=== PATIENT | male | born 1995 | race Caucasian/White ===

== ENCOUNTER 2020-12-14 06:49 | Emergency (ER) | payer OTHER ==
[2020-12-14 07:48] LABS: BASOPHIL 0.3 % (0-2); EOSINOPHIL 0.1 % (0-5); HCT 49.7 % (42.0-52.0); HGB 16.4 g/dl (13.2-18.0); MCH 30.5 pg (25.0-31.0); MCV 92.6 fL (78.0-100.0); MPV 9.6 fL (6.0-9.5); NEUTROPHIL 74.2 % (41-80); NRBC 0; PLT 311 K/uL (150-400); RBC 5.37 M/uL (4.70-6.00); RDW 12.8 % (11.5-14.0); WBC 17.4 K/uL (4.0-10.5)
[2020-12-14 08:13] LABS: ALBUMIN 4.1 g/dL (3.4-5.0); ALKALINE PHOSHATASE 57 U/L (46-116); ALT 123 U/L (16-63); AST 96 U/L (15-37); BILIRUBIN - TOTAL 0.2 mg/dL (0.2-1.0); BUN 16 mg/dL (7-18); BUN/CREAT RATIO (CALC) 19.5 RATIO; CHLORIDE 106 mmol/L (98-107); CO2 (BICARBONATE) 28 mmol/L (21-32); CREATININE 0.82 mg/dL (0.67-1.17); GLOBULIN (CALCULATION) 3.4 g/dL; GLUCOSE 119 mg/dL (74-106); LIPASE 215 U/L (73-393); MAGNESIUM 2.2 mg/dL (1.8-2.4); POTASSIUM 3.6 mmol/L (3.5-5.1); TOTAL PROTEIN 7.5 g/dL (6.4-8.2)
[2020-12-14 08:14] LABS: ACETAMINOPHEN (TYLENOL) < 2.0 ug/mL (10.0-30.0)
[2020-12-14 15:58] LABS: BILIRUBIN NEGATIVE (NEGATIVE); BLOOD NEGATIVE Ery/uL (NEGATIVE); CLARITY CLEAR (CLEAR); COLOR YELLOW (YELLOW); GLUCOSE (U) NORMAL (NORMAL); LEUKOCYTES NEGATIVE Leu/uL (NEGATIVE); NITRITE NEGATIVE (NEGATIVE); PROTEIN NEGATIVE (NEGATIVE); UROBILINOGEN 0.2 mg/dL (0.2-1.0)
[2020-12-14 16:10] LABS: AMPHETAMINES NEGATIVE (NEGATIVE); BARBITURATES NEGATIVE (NEGATIVE); ECSTASY (MDMA) NEGATIVE (NEGATIVE); MARIJUANA (THC) NEGATIVE (NEGATIVE); METHADONE NEGATIVE (NEGATIVE); OPIATES NEGATIVE (NEGATIVE); OXYCODONE NEGATIVE (NEGATIVE)
== END 2020-12-14 20:43 ==
LOC: FER 06:49
PROVIDERS: Emergency Medicine
DX: F31.9 Bipolar disorder, unspecified (principal); F10.129 Alcohol abuse with intoxication, unspecified; F17.210 Nicotine dependence, cigarettes, uncomplicated; Z20.822 Contact with and (suspected) exposure to COVID-19
CPT/HCPCS: 36415; 80053; 80305; 81003; 83690; 83735; 85025; G0480; J3411; J3475; J7030; U0002

== ENCOUNTER 2021-03-28 21:22 | Emergency (ER) | payer OTHER ==
[2021-03-28 21:59] LABS: BASOPHIL 0.5 % (0-2); EOSINOPHIL 1.7 % (0-5); HCT 43.8 % (42.0-52.0); HGB 15.3 g/dl (13.2-18.0); LYMPHOCYTE 37.6 % (15-48); MCH 30.8 pg (25.0-31.0); MCHC 34.9 g/dL (32.0-36.0); MCV 88.3 fL (78.0-100.0); MONOCYTE 9.9 % (0-12); MPV 9.7 fL (6.0-9.5); NEUTROPHIL 49.4 % (41-80); NRBC 0; PLT 307 K/uL (150-400); RBC 4.96 M/uL (4.70-6.00); RDW 11.9 % (11.5-14.0); WBC 11.3 K/uL (4.0-10.5)
[2021-03-28 22:03] LABS: BILIRUBIN NEGATIVE (NEGATIVE); BLOOD NEGATIVE Ery/uL (NEGATIVE); CLARITY CLEAR (CLEAR); COLOR YELLOW (YELLOW); GLUCOSE (U) NORMAL (NORMAL); LEUKOCYTES NEGATIVE Leu/uL (NEGATIVE); NITRITE NEGATIVE (NEGATIVE); PROTEIN NEGATIVE (NEGATIVE); SPECIFIC GRAVITY >=1.030 (1.001-1.030)
[2021-03-28 22:09] LABS: ALBUMIN 3.7 g/dL (3.4-5.0); BILIRUBIN - TOTAL 0.3 mg/dL (0.2-1.0); BUN/CREAT RATIO (CALC) 18.4 RATIO; CREATININE 0.98 mg/dL (0.67-1.17); POTASSIUM 3.7 mmol/L (3.5-5.1); TOTAL PROTEIN 6.7 g/dL (6.4-8.2)
[2021-03-28] MEDS ORDERED: PEPCID AC20 MG PO (23:53)
== END 2021-03-29 00:09 | disposition home or self-care (01) ==
LOC: FER 21:22
PROVIDERS: Emergency Medicine
DX: B34.9 Viral infection, unspecified (principal); K29.70 Gastritis, unspecified, without bleeding; F17.200 Nicotine dependence, unspecified, uncomplicated
CPT/HCPCS: 36415; 71045; 80053; 81003; 82150; 83690; 85025

== ENCOUNTER 2021-06-29 02:30 | Emergency (ER) | payer OTHER ==
[~2021-06-29 02:30] MED LIST: PEPCID AC20 MG PO
[2021-06-29 03:50] LABS: BASOPHIL 0.4 % (0-2); EOSINOPHIL 0.2 % (0-5); HCT 46.9 % (42.0-52.0); HGB 15.9 g/dl (13.2-18.0); LYMPHOCYTE 22.7 % (15-48); MCH 30.4 pg (25.0-31.0); MCHC 33.9 g/dL (32.0-36.0); MCV 89.7 fL (78.0-100.0); MPV 9.8 fL (6.0-9.5); NRBC 0; PLT 327 K/uL (150-400); RBC 5.23 M/uL (4.70-6.00)
[2021-06-29 03:51] LABS: WBC 19.3 K/uL (4.0-10.5)
[2021-06-29 04:09] LABS: ALBUMIN 4.1 g/dL (3.4-5.0); ALKALINE PHOSHATASE 70 U/L (46-116); ALT 35 U/L (16-63); AST 23 U/L (15-37); BILIRUBIN - TOTAL 0.4 mg/dL (0.2-1.0); BUN 17 mg/dL (7-18); BUN/CREAT RATIO (CALC) 17.9 RATIO; CHLORIDE 104 mmol/L (98-107); CO2 (BICARBONATE) 31 mmol/L (21-32); CREATININE 0.95 mg/dL (0.67-1.17); GLOBULIN (CALCULATION) 3.2 g/dL; GLUCOSE 100 mg/dL (74-106); POTASSIUM 4.1 mmol/L (3.5-5.1); TOTAL PROTEIN 7.3 g/dL (6.4-8.2)
[2021-06-29 04:10] LABS: ACETAMINOPHEN (TYLENOL) < 2.0 ug/mL (10.0-30.0)
== END 2021-06-29 11:25 ==
LOC: FER 02:30
PROVIDERS: Emergency Medicine
DX: R45.851 Suicidal ideations (principal); F17.210 Nicotine dependence, cigarettes, uncomplicated; Z20.822 Contact with and (suspected) exposure to COVID-19
CPT/HCPCS: 36415; 71045; 80053; 85025; G0480; U0002

== ENCOUNTER 2022-06-19 13:09 | Emergency (ER) | payer OTHER ==
[2022-06-19 14:00] LABS: BASOPHIL 0.3 % (0-2); EOSINOPHIL 0.2 % (0-5); HCT 44.5 % (42.0-52.0); HGB 15.2 g/dl (13.2-18.0); LYMPHOCYTE 10.2 % (15-48); MCH 30.3 pg (25.0-31.0); MCHC 34.2 g/dL (32.0-36.0); MCV 88.6 fL (78.0-100.0); MONOCYTE 9.5 % (0-12); MPV 9.9 fL (6.0-9.5); NEUTROPHIL 79.1 % (41-80); NRBC 0; PLT 271 K/uL (150-400); RBC 5.02 M/uL (4.70-6.00); RDW 12.6 % (11.5-14.0); WBC 27.2 K/uL (4.0-10.5)
[2022-06-19 14:25] LABS: BUN/CREAT RATIO (CALC) 12.5 RATIO; CREATININE 0.72 mg/dL (0.67-1.17); POTASSIUM 3.5 mmol/L (3.5-5.1)
[2022-06-19] MEDS ORDERED: CEPHALEXIN500 MG PO (15:50)
[2022-06-19] MEDS ORDERED: BACTRIM DS TAB1 EACH PO (15:50)
== END 2022-06-19 17:01 | disposition home or self-care (01) ==
LOC: FER 13:09
PROVIDERS: Nurse Practitioner Family
DX: L02.512 Cutaneous abscess of left hand (principal); L03.012 Cellulitis of left finger; F17.210 Nicotine dependence, cigarettes, uncomplicated; Z23 Encounter for immunization
CPT/HCPCS: 36415; 73130; 80048; 84145; 85025; 87040; 87070; 87077; 87186; 87205; 90471; 90715; 96365; 96366; J3370; J7050

== ENCOUNTER 2022-06-21 04:41 | Emergency (ER) | payer OTHER ==
[~2022-06-21 04:41] MED LIST changes: +BACTRIM DS TAB1 EACH PO; +CEPHALEXIN500 MG PO
[2022-06-21 05:13] LABS: BASOPHIL 0.4 % (0-2); EOSINOPHIL 0.2 % (0-5); HCT 42.7 % (42.0-52.0); HGB 14.6 g/dl (13.2-18.0); LYMPHOCYTE 13.6 % (15-48); MCH 30.4 pg (25.0-31.0); MCHC 34.2 g/dL (32.0-36.0); MONOCYTE 9.5 % (0-12); MPV 9.8 fL (6.0-9.5); NEUTROPHIL 74.8 % (41-80); NRBC 0; PLT 294 K/uL (150-400); RDW 12.5 % (11.5-14.0); WBC 12.8 K/uL (4.0-10.5)
[2022-06-21 05:36] LABS: ACETAMINOPHEN (TYLENOL) <2.0 ug/mL (10.0-30.0); ALBUMIN 3.8 g/dL (3.4-5.0); ALKALINE PHOSHATASE 61 U/L (46-116); ALT 35 U/L (16-63); AST 28 U/L (15-37); BILIRUBIN - TOTAL 0.3 mg/dL (0.2-1.0); BUN 11 mg/dL (7-18); BUN/CREAT RATIO (CALC) 12.6 RATIO; CHLORIDE 105 mmol/L (98-107); CO2 (BICARBONATE) 24 mmol/L (21-32); CREATININE 0.87 mg/dL (0.67-1.17); GLOBULIN (CALCULATION) 3.5 g/dL; GLUCOSE 120 mg/dL (74-106); POTASSIUM 3.2 mmol/L (3.5-5.1); TOTAL PROTEIN 7.3 g/dL (6.4-8.2)
== END 2022-06-21 21:15 | disposition other institution (70) ==
LOC: FER 04:41
PROVIDERS: Internal Medicine
DX: R45.851 Suicidal ideations (principal); F10.129 Alcohol abuse with intoxication, unspecified; S61.402A Unspecified open wound of left hand, initial encounter; L03.114 Cellulitis of left upper limb; Z20.822 Contact with and (suspected) exposure to COVID-19; X58.XXXA Exposure to other specified factors, initial encounter; Y90.4 Blood alcohol level of 80-99 mg/100 ml
CPT/HCPCS: 36415; 80053; 85025; 99285; G0480; U0002

== ENCOUNTER 2022-06-21 14:54 | Emergency (ER) | payer OTHER | END 2022-06-21 21:54 | disposition other institution (70) | LOC: FER 14:54 | DX: R45.851 Suicidal ideations (principal); F10.129 Alcohol abuse with intoxication, unspecified; Y90.1 Blood alcohol level of 20-39 mg/100 ml; S61.402A Unspecified open wound of left hand, initial encounter; S80.212A Abrasion, left knee, initial encounter; S80.211A Abrasion, right knee, initial encounter; L03.114 Cellulitis of left upper limb; Z20.822 Contact with and (suspected) exposure to COVID-19 | CPT/HCPCS: 99285 ==